=== PATIENT | female | born 1945 | race Caucasian/White ===

== ENCOUNTER 2016-02-22 08:35 | Outpatient (CLI) | payer MEDICARE ==
[2016-02-22] MEDS ORDERED: REGADENOSON 0.4 MG/5 ML SYRINGE IVP ONE (12:57)
== END 2016-02-22 08:36 | disposition home or self-care (01) ==
DX: R07.9 Chest pain, unspecified (principal); R94.31 Abnormal electrocardiogram [ECG] [EKG]; I73.9 Peripheral vascular disease, unspecified; I10 Essential (primary) hypertension; E78.5 Hyperlipidemia, unspecified; Z87.891 Personal history of nicotine dependence
CPT/HCPCS: 78452; 93017; A9500; J2785

== ENCOUNTER 2016-05-13 07:07 | Outpatient (CLI) | payer MEDICARE | END 2016-05-13 07:08 | disposition home or self-care (01) | DX: E78.5 Hyperlipidemia, unspecified (principal); F31.9 Bipolar disorder, unspecified; E03.9 Hypothyroidism, unspecified ==

== ENCOUNTER 2016-07-02 06:42 | Day surgery (SDC) | payer MEDICARE ==
[2016-07-02] MEDS ORDERED: LACTATED RINGERS 1,000 ML IV ONE ×2 (07:31→08:13)
[2016-07-02] MEDS ORDERED: BENZOCAINE/TETRACAINE/BUTAMBEN SPRAY 56 GM TOP ONE (08:12)
[2016-07-02] MEDS ORDERED: fentaNYL 100 MCG/2 ML VIAL IVP ONE (08:25)
[2016-07-02] MEDS ORDERED: MIDAZOLAM 2 MG/2 ML VIAL IVP ONE (08:25)
== END 2016-07-02 06:43 | disposition home or self-care (01) ==
PROC: 0DB68ZX Excision of Stomach, Via Natural or Artificial Opening Endoscopic, Diagnostic (ICD-10-PCS; principal; 2016-07-02 08:00)
DX: K29.50 Unspecified chronic gastritis without bleeding (principal); K21.9 Gastro-esophageal reflux disease without esophagitis; F17.210 Nicotine dependence, cigarettes, uncomplicated; Z88.0 Allergy status to penicillin; K44.9 Diaphragmatic hernia without obstruction or gangrene
CPT/HCPCS: 43239; A9270; J7120

== ENCOUNTER 2016-09-25 10:22 | Outpatient (CLI) | payer MEDICARE ==
--- NOTE | 2016-09-26 16:56 | Mammography Report ---
DIGITAL SCREENING MAMMOGRAM: 09/25/2016 CLINICAL INDICATION: A 71-year-old for screening. COMPARISON: 12/2014, 10/2013, 10/2011. TECHNIQUE: Routine CC and MLO projections were obtained of the breasts. FINDINGS: Parenchymal tissue within the breasts is predominantly fatty replaced. There are no domin ant masses, suspicious microcalcifications, or secondary signs of malignancy. In comparison to the p revious studies, there are no significant changes. IMPRESSION: NO MAMMOGRAPHIC EVIDENCE OF MALIGNANCY. NO SIGNIFICANT INTERVAL CHANGES. RECOMMENDATION: Screening mammography is recommended annually. BIRADS category 1 - negative. STANDARD QUALIFYING STATEMENTS 1. This examination was reviewed with the aid of Computed-Aided Detection (CAD). 2. A negative or benign imaging report should not delay biopsy if clinically suspicious findings are present. Consider surgical consultation if warranted. More than 5% of cancers are not identified b y imaging. 3. Dense breasts may obscure an underlying neoplasm. JOB #: [id number] EXT [id number] #:[id number]
== END 2016-09-25 10:23 | disposition home or self-care (01) ==
LOC: DI 10:22
PROVIDERS: ATTEND Family Medicine
DX: Z12.31 Encounter for screening mammogram for malignant neoplasm of breast (principal)
CPT/HCPCS: 77067

== ENCOUNTER 2016-12-04 13:06 | Outpatient (CLI) | payer MEDICARE ==
[2016-12-04 12:36] LABS: HCT - HEMATOCRIT 44.3 % (37.0-47.0); HGB - HEMOGLOBIN 14.4 g/dL (12.0-16.0); MEAN CORPUSCULAR HEMOGLOBIN 28.3 pg (27.0-31.0); MEAN CORPUSCULAR HGB CONC 32.6 g/dL (32.0-36.0); MEAN CORPUSCULAR VOLUME 86.9 fL (81.0-99.0); RED BLOOD COUNT 5.1 10^6/uL (4.20-5.40); RED CELL DISTRIBUTION WIDTH 14.8 % (12.0-15.0); WHITE BLOOD COUNT 9.1 x10^3/uL (4.8-10.8)
[2016-12-04 13:11] LABS: CALCIUM 9.1 mg/dL (8.5-10.3); PHOSPHORUS 4.5 mg/dL (2.5-4.6)
[2016-12-04 13:14] LABS: FERRITIN 79.7 ng/mL (11.0-306.8)
== END 2016-12-04 13:07 | disposition home or self-care (01) ==
LOC: LAB.WCP 13:06
PROVIDERS: ATTEND Family Medicine
DX: F31.9 Bipolar disorder, unspecified (principal); N18.4 Chronic kidney disease, stage 4 (severe)
CPT/HCPCS: 36415; 80048; 80178; 82728; 83970; 84100; 85025

== ENCOUNTER 2017-01-11 14:37 | Outpatient (CLI) | payer MEDICARE ==
--- NOTE | 2017-01-11 16:13 | Ultrasound Report ---
EXAM: RENAL ULTRASOUND EXAM DATE: 01/11/2017 02:38 p.m. CLINICAL HISTORY: Stage 4 kidney disease. COMPARISON: 09/15/2014 CT. TECHNIQUE: Real-time scanning was performed with static images obtained. FINDINGS: Right Kidney: 10.8 x 4.6 x 4.6 cm. Echogenic renal cortex. No renal mass, stones or hydronephrosis. 1 .4 x 1.2 x 1.5 cm simple right upper pole renal cyst. Left Kidney: 10 x 3.6 x 4.4 cm. Echogenic renal cortex. No renal mass, stones or hydronephrosis. Bladder: Bilateral jets seen. The prevoid bladder volume was 72 cc. The postvoid bladder volume was 0 cc. IMPRESSION: 1. Echogenic renal cortex. No stones or hydronephrosis. 1.5 cm simple right upper pole renal cyst. 2. Normal bladder. [facility] Referring Provider Line: [phone] SITE ID: [id number]
== END 2017-01-11 14:38 | disposition home or self-care (01) ==
LOC: DI 14:37
PROVIDERS: ATTEND Internal Medicine Nephrology
DX: N18.4 Chronic kidney disease, stage 4 (severe) (principal); N28.1 Cyst of kidney, acquired
CPT/HCPCS: 76770

== ENCOUNTER 2017-07-07 20:49 | Emergency (ER) | payer MEDICARE ==
[2017-07-07 22:00] LABS: BASOPHILS % (AUTO) 0.3 %; EOSINOPHILS # (AUTO) 0.3 10^3/uL (0.0-0.7); EOSINOPHILS % (AUTO) 2.4 %; HGB - HEMOGLOBIN 13.4 g/dL (12.0-16.0); LYMPHOCYTES # (AUTO) 1.2 10^3/uL (1.5-3.5); LYMPHOCYTES % (AUTO) 11.5 %; MEAN CORPUSCULAR HEMOGLOBIN 28.1 pg (27.0-31.0); MEAN CORPUSCULAR HGB CONC 32.3 g/dL (32.0-36.0); MEAN CORPUSCULAR VOLUME 87.1 fL (81.0-99.0); MEAN PLATELET VOLUME 8.1 fL (7.9-10.8); MONOCYTES # (AUTO) 0.6 10^3/uL (0.0-1.0); MONOCYTES % (AUTO) 5.9 %; NEUTROPHILS # (AUTO) 8.5 10^3/uL (1.5-6.6); NEUTROPHILS % (AUTO) 79.9 %; PLT - PLATELET COUNT 222 10^3/uL (130-450); RED BLOOD COUNT 4.76 10^6/uL (4.20-5.40); RED CELL DISTRIBUTION WIDTH 15.1 % (12.0-15.0); WHITE BLOOD COUNT 10.6 x10^3/uL (4.8-10.8)
[2017-07-07 22:12] LABS: ALBUMIN 3.5 g/dL (3.2-5.5); BILIRUBIN,TOTAL 0.5 mg/dL (0.2-1.0); CALCIUM 8.9 mg/dL (8.5-10.3)
--- NOTE | 2017-07-07 22:26 | ED Physician Documentation ---
PD HPI ABD PAIN - Stated complaint Stated Complaint: REFLUX ISSUES - Chief complaint Chief Complaint: Abd Pain - History obtained from History obtained from: Patient - History of Present Illness Timing - onset: Today Timing - duration: Hours Timing - details: Still present Quality: Indigestion (feeling like reflux/heart burn she has had in the past but no improvement with Carafate and Omprazole. has had similar in the past and improved with GI cocktail previously. Has had cardiac workup which is normal. Had EGD few months ago Dx gastritis and was hpylori negative. On PPI and Carafate. However her creatinine is elevated so is concerned about PPI use and ? not as consistent with it.) Location: Epigastric Radiation: Chest Improved by: No: Eating, Meds Worsened by: Eating Associated symptoms: No: Nausea, Vomiting, Diarrhea Similar symptoms before: Diagnosis (GERD and reflux/esophagitis) Review of Systems Constitutional: denies: Fever, Chills Nose: denies: Rhinorrhea / runny nose, Congestion Throat: denies: Sore throat Cardiac: denies: Palpitations, Pedal edema, Calf pain Respiratory: denies: Cough GI: reports: Abdominal Pain. 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 HEENT: Cataracts Derm: Other - Present Medications Home Medications: Ambulatory Orders Medication Instructions Recorded Confirmed Ipratropium/Albuterol [Combivent 4 gm IH DAILY 01/22/13 07/07/17 Respimat] Levothyroxine Sodium [Synthroid] 112 mcg PO DAILY 01/22/13 07/07/17 [place] Carbonate [[place] 450 mg PO HS 01/22/13 07/07/17 Carbonate ER] Multivitamin [Multivitamins] 1 each PO DAILY 01/22/13 07/07/17 NIFEdipine [Procardia Xl] 90 mg PO DAILY 01/22/13 07/07/17 Omeprazole 20 mg PO BID 01/22/13 07/07/17 Aspirin [Aspir 81] 81 mg PO DAILY 09/12/14 07/07/17 Nitroglycerin [Nitrostat] 0.4 mg SL Q5MIN PRN 09/12/14 07/07/17 Isosorbide Dinitrate 30 mg PO BID 07/01/16 07/07/17 Triamterene/Hydrochlorothiazid 1 each PO DAILY 07/01/16 07/07/17 [Triamterene-Hctz 37.5-25 mg Cp] Lidocaine Viscous 2% [Xylocaine 5 ml PO Q4H PRN #1 bottle 07/07/17 Viscous 2%] Sucralfate 1 gm PO TID #30 tablet 07/07/17 - Allergies Allergies/Adverse Reactions: Allergies Allergy/AdvReac Type Severity Reaction Status Date / Time diphenhydramine HCl * AdvReac Severe Anaphylaxis Verified 07/07/17 21:06 [From Benadryl] penicillin V AdvReac Severe Anaphylaxis Verified 07/07/17 21:06 atorvastatin calcium * AdvReac Anaphylaxis Verified 07/07/17 21:06 [From Lipitor] - Social History Does the pt smoke?: Yes Smoking Status: Current every day smoker Does the pt drink ETOH?: Yes Does the pt have substance abuse?: No - Immunizations Immunizations are current?: No Immunizations: TDAP >10years/unknown - POLST Patient has POLST: No PD ED PE NORMAL - Vitals Vital signs reviewed: Yes - General General: Alert and oriented X 3, Well developed/nourished - HEENT HEENT: Pharynx benign - Neck Neck: Supple, no meningeal sign, No adenopathy - Cardiac Cardiac: RRR, No murmur - Respiratory Respiratory: Clear bilaterally - Abdomen Abdomen: Normal bowel sounds, Soft, Non tender, Non distended - Derm Derm: Normal color, Warm and dry Results - Vitals Vitals: Vital Signs - 24 hr 07/07/17 07/07/17 21:00 22:56 Temperature 36.3 C L Heart Rate 62 63 Respiratory 17 21 Rate Blood Pressure 150/82 H 131/65 H O2 Saturation 98 97 Oxygen O2 Source Room air - EKG (time done) 21:49 Rate: Rate (enter#) (57) Rhythm: Sinus bradycardia Hart: Normal Intervals: Normal PA QRS: Poor R wave progression Ischemia: Normal ST segments. No: ST elevation c/w ischemia, ST depression Computer interpretation: Disagree with computer - Labs Labs: Laboratory Tests 07/07/17 07/07/17 07/07/17 21:54 21:54 21:54 WBC 10.6 RBC 4.76 Hgb 13.4 Hct 41.5 MCV 87.1 MCH 28.1 MCHC 32.3 RDW 15.1 H Plt Count 222 MPV 8.1 Neut # 8.5 H Lymph # 1.2 L [place] # 0.6 Eos # 0.3 Baso # 0.0 Absolute Nucleated RBC 0.00 Nucleated RBC % 0.0 Sodium 136 Potassium 3.3 L Chloride 106 Carbon Dioxide 21 Anion Gap 9.0 BUN 21 H Creatinine 2.0 H Estimated GFR (MDRD) 24 L Glucose 133 H Calcium 8.9 Magnesium Total Bilirubin 0.5 AST 13 ALT 12 Alkaline Phosphatase 100 Troponin I < 0.04 B-Natriuretic Peptide Total Protein 7.0 Albumin 3.5 Globulin 3.5 Albumin/Globulin Ratio 1.0 Lipase 28 Last Dose Date Last Dose Time [place] 07/07/17 07/07/17 07/07/17 21:54 22:34 22:34 WBC RBC Hgb Hct MCV MCH MCHC RDW Plt Count MPV Neut # Lymph # [place] # Eos # Baso # Absolute Nucleated RBC Nucleated RBC % Sodium Potassium Chloride Carbon Dioxide Anion Gap BUN Creatinine Estimated GFR (MDRD) Glucose Calcium Magnesium 2.4 Total Bilirubin AST ALT Alkaline Phosphatase Troponin I B-Natriuretic Peptide 252 H Total Protein Albumin Globulin Albumin/Globulin Ratio Lipase Last Dose Date Not Reportable Last Dose Time Not Reportable [place] 0.35 PD MEDICAL DECISION MAKING - ED course Complexity details: re-evaluated patient (improved with GI cocktail. Has had workup of cardiac and EGD, prior EGD test for h pylori was negative. has had improvement with GI cocktail when bad flare such as tonight has happened in the past. ), considered differential, d/w patient Departure - Departure Disposition: Home, Self Care Clinical Impression: Epigastric abdominal pain Gastritis Qualifiers: Gastritis type: unspecified gastritis Chronicity: acute Gastritis bleeding: without bleeding Qualified Code(s): K29.00 - Acute gastritis without bleeding Condition: Stable Record reviewed to determine appropriate education?: Yes Instructions: ED PUD Vs Gastritis Follow-Up: Apollo Rhodes DO [Primary Care Provider] - Prescriptions: Lidocaine Viscous 2% [Xylocaine Viscous 2%] 5 ml PO Q4H PRN #1 bottle PRN Reason: Pain Sucralfate 1 gm PO TID #30 tablet Comments: Continue your current medications. Continue the sucralfate 3 or 4 times a day. Add viscous lidocaine 5-10 mils mixed with an antacid every 4 hours if needed for pains. Follow-up with your primary care. Discharge Date/Time: 07/07/17 23:21
--- NOTE | 2017-07-07 22:33 | XRAY Report ---
EXAM: CHEST RADIOGRAPHY EXAM DATE: 07/07/2017 10:08 PM. CLINICAL HISTORY: Chest pain. COMPARISON: 01/29/2011. TECHNIQUE: 1 view. FINDINGS: Lungs/Pleura: No focal opacities evident. No pleural effusion. No pneumothorax. Mediastinum: Within exam limitations, the cardiomediastinal contour is normal. Other: None. IMPRESSION: Stable negative single view chest. [facility] Referring Provider Line: [phone] SITE ID: [id number]
[2017-07-07] MEDS ORDERED: MAG HYDROX/AL HYDROX/SIMETH 30 ML UDC PO STA (22:47)
[2017-07-07] MEDS ORDERED: PHENobarb/HYOSCY/ATROPINE/SCOP 5 ML UDC PO STA (22:47)
[2017-07-07] MEDS ORDERED: LIDOCAINE VISCOUS 2% 15 ML UDC MM STA (22:47)
[2017-07-07 22:56] VITALS: BP 131/65
[2017-07-07 23:31] LABS: LITHIUM 0.35 mmol/L
== END 2017-07-07 23:21 | disposition home or self-care (01) ==
LOC: ED 20:49
DX: K29.00 Acute gastritis without bleeding (principal); K21.9 Gastro-esophageal reflux disease without esophagitis; R00.1 Bradycardia, unspecified; I10 Essential (primary) hypertension; E03.9 Hypothyroidism, unspecified; F17.200 Nicotine dependence, unspecified, uncomplicated; Z79.82 Long term (current) use of aspirin
CPT/HCPCS: 36415; 71045; 80053; 80178; 83690; 83735; 83880; 84484; 85025; 93005; 99283; A9270

== ENCOUNTER 2017-11-25 09:11 | Outpatient (CLI) | payer MEDICARE ==
--- NOTE | 2017-11-25 16:17 | Ultrasound Report ---
Reason: ABNORMAL WEIGHT LOSS,EPIGASTRIC PAIN Procedure Date: 11/25/2017 Accession Number: [id number] / [id number] Procedure: US - Arterial Visceral Complete CPT Code: FULL RESULT: EXAM: MESENTERIC DUPLEX EXAM DATE: 11/25/2017 10:11 AM. CLINICAL HISTORY: Abnormal weight loss, epigastric pain. COMPARISON: 11/25/2017 10:18 AM. TECHNIQUE: Real-time sonographic vascular imaging was performed by the corrugator operator through the mesenteric arterial system with a linear transducer utilizing color-flow, Doppler flow and spectral analysis. Multiple lead customer service representative static images were saved for review. FINDINGS: The celiac axis, VONNIE and SMA axes are interrogated proximally and compared to the aorta. All vessels demonstrate brisk upstrokes by spectral Doppler, preserved flow by color Doppler and are within normal limits on hall scale. Obtained velocities are not consistent with greater than 70% stenosis in the sampled vascular territories. Aorta: 96cm/sec. Celiac [place]: Origin: 103.2 cm/sec. Proximal: 98.3 cm/sec. Mid: 160.7 cm/sec. Distal: 143.4 cm/sec. Hepatic Artery: 101.0 cm/sec. Splenic Artery: 82.7 cm/sec. Superior Mesenteric Artery Origin: 109.2 cm/sec. Proximal: 223.9 cm/sec. Mid: 219.4 cm/sec. Distal: 119.0 cm/sec. Inferior Mesenteric Artery: Origin: 128.9 cm/sec. Proximal: 218.3 cm/sec. Mid: 162.7 cm/sec. Distal: 94.3 cm/sec. IMPRESSION: Patent proximal celiac and SMA and VONNIE axes. No velocities are suggestive of greater than 70% stenosis. [facility]
== END 2017-11-25 09:12 | disposition home or self-care (01) ==
LOC: DI 09:11
PROVIDERS: ATTEND Internal Medicine
DX: R63.4 Abnormal weight loss (principal); R10.13 Epigastric pain; K21.9 Gastro-esophageal reflux disease without esophagitis
CPT/HCPCS: 93975

== ENCOUNTER 2018-01-27 10:21 | Outpatient (CLI) | payer MEDICARE ==
--- NOTE | 2018-01-28 09:04 | DEXA Report ---
Reason: POSTMENOPAUSAL STATUS Procedure Date: 01/27/2018 Accession Number: [id number] / [id number] Procedure: DEX - Dexa Spine and/or Hip CPT Code: FULL RESULT: EXAM: Dexa Spine and/or Hip DATE: 01/27/2018 11:08 AM CLINICAL HISTORY: POSTMENOPAUSAL STATUS TECHNIQUE: Dual energy x-ray absorptiometry (DXA) was performed on a [employer]IEvolution System. Regions measured are the AP Spine, femoral neck, and if needed forearm. COMPARISON: None. In accordance with the International Society for Clinical Densitometry (ISCD) guidelines, data from previous exams may be reanalyzed using current recommendations and techniques. This is done to allow a more accurate basis for comparison with the current study. FINDINGS: The data for the lumbar spine is as follows: BMD (g/cm/cm) T-SCORE Z-SCORE REGION L1 1.001 -1.1 0.3 L2 1.080 -1.0 0.4 L3 1.184 -0.1 1.2 L4 1.313 0.9 2.3 TOTAL 1.141 -0.3 1.0 NOTE: All evaluable vertebrae are used for classification The data for the hip is as follows: BMD (g/cm/cm) T-SCORE Z-SCORE REGION Neck 0.730 -2.2 -0.6 TOTAL 0.730 -2.2 -0.8 NOTE: The femoral neck or total proximal femur, whichever is lowest, is used for classification. IMPRESSION: THE WHO CLASSIFICATION BASED ON THE INTERNATIONAL REFERENCE STANDARD IS OSTEOPENIA. THE FRACTURE RISK IS INCREASED. RECOMMENDATION: Patients with diagnosis of osteoporosis or osteopenia should have regular bone mineral density assessment. For those eligible for Medicare, routine testing is allowed once every 2 years. Testing frequency can be increased for patients who have rapidly progressing disease or for those who are receiving medical therapy to restore bone mass. COMMENT: World Health Organization (WHO) definitions for osteoporosis and osteopenia: NORMAL BMD: T-score at -1.0 or higher, fracture risk is low OSTEOPENIA BMD: T-score between -1.0 and -2.5, fracture risk is increased. OSTEOPOROSIS BMD: T-score at -2.5 or lower, fracture risk is high. National Osteoporosis Foundation recommends: 1. Obtain adequate dietary calcium (at least 1200 mg per day) and vitamin D (400-800 international units per day). 2. Participate, as appropriate, in regular weightbearing and muscle-strengthening exercise. 3. Avoid tobacco use and reduce alcohol and caffeine intake. 4. For more detailed information see the website at www.NOF.org.
== END 2018-01-27 10:22 | disposition home or self-care (01) ==
LOC: DI 10:21
PROVIDERS: ATTEND Family Medicine
DX: M85.88 Other specified disorders of bone density and structure, other site (principal)
CPT/HCPCS: 77080

== ENCOUNTER 2018-10-18 08:57 | Emergency (ER) | payer MEDICARE ==
--- NOTE | 2018-10-18 09:09 | ED Physician Documentation ---
PD HPI ABD PAIN - Stated complaint Stated Complaint: UPPER ABD PX - History obtained from History obtained from: Patient - History of Present Illness Timing - onset: How many days ago (3-4) Timing - duration: Days (several days of increased pain epigastric area. Has had reflux and heartburn for awhile, but was better with increased doses of Omeprazole 40 mg BID. This is not as effective the past few weeks and having consistent upper mani pain the past 3-4 days.) Timing - details: Gradual onset, Still present, Waxing and waning Quality: Cramping, Aching, Pain Location: Epigastric Radiation: Chest (esophageal area.) Improved by: Other (lidocaine PO with Gaviscon, but only temporarily.) Worsened by: Eating Associated symptoms: Nausea, Loss of appetite. No: Fever, Vomiting, Diarrhea, Constipation, Dizzy Similar symptoms before: Has not had sx before Recently seen: Not recently seen Review of Systems Constitutional: denies: Fever, Chills, Myalgias Nose: denies: Rhinorrhea / runny nose, Congestion Throat: denies: Sore throat Cardiac: denies: Palpitations Respiratory: denies: Cough GI: reports: Nausea. 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 HEENT: Cataracts Derm: Other - Present Medications Home Medications: Ambulatory Orders Medication Instructions Recorded Confirmed Ipratropium/Albuterol [Combivent 4 gm IH DAILY 01/22/13 07/07/17 Respimat] Levothyroxine Sodium [Synthroid] 112 mcg PO DAILY 01/22/13 07/07/17 [place] Carbonate [[place] 450 mg PO HS 01/22/13 07/07/17 Carbonate ER] Multivitamin [Multivitamins] 1 each PO DAILY 01/22/13 07/07/17 NIFEdipine [Procardia Xl] 90 mg PO DAILY 01/22/13 07/07/17 Omeprazole 20 mg PO BID 01/22/13 07/07/17 Aspirin [Aspir 81] 81 mg PO DAILY 09/12/14 07/07/17 Nitroglycerin [Nitrostat] 0.4 mg SL Q5MIN PRN 09/12/14 07/07/17 Isosorbide Dinitrate 30 mg PO BID 07/01/16 07/07/17 Triamterene/Hydrochlorothiazid 1 each PO DAILY 07/01/16 07/07/17 [Triamterene-Hctz 37.5-25 mg Cp] Lidocaine Viscous 2% [Xylocaine 5 ml PO Q4H PRN #1 bottle 07/07/17 Viscous 2%] Sucralfate 1 gm PO TID #30 tablet 07/07/17 Hydrocodone/Acetaminophen [[place] 1 each PO Q6H PRN #15 tablet 10/18/18 5-325 Tablet] Lidocaine Viscous 2% [Xylocaine 5 ml PO Q4H PRN #100 ml 10/18/18 Viscous 2%] Pantoprazole Sodium 40 mg PO DAILY #40 tablet. 10/18/18 Sucralfate [Carafate] 1 gm PO ACHS #40 tablet 10/18/18 - Allergies Allergies/Adverse Reactions: Allergies Allergy/AdvReac Type Severity Reaction Status Date / Time diphenhydramine HCl * AdvReac Severe Anaphylaxis Verified 10/18/18 09:13 [From Benadryl] penicillin V AdvReac Severe Anaphylaxis Verified 10/18/18 09:13 atorvastatin calcium * AdvReac Anaphylaxis Verified 10/18/18 09:13 [From Lipitor] - Social History Does the pt smoke?: Yes Smoking Status: Current every day smoker Does the pt drink ETOH?: Yes Does the pt have substance abuse?: No - Immunizations Immunizations are current?: No Immunizations: TDAP >10years/unknown - POLST Patient has POLST: No PD ED PE NORMAL - Vitals Vital signs reviewed: Yes - General General: Alert and oriented X 3, Well developed/nourished - HEENT HEENT: Ears normal, Moist mucous membranes, Pharynx benign - Neck Neck: Supple, no meningeal sign, No adenopathy - Cardiac Cardiac: RRR, No murmur - Respiratory Respiratory: Clear bilaterally - Abdomen Abdomen: Normal bowel sounds, Soft, Non distended, No organomegaly, Other (tender with some guarding but no percussion tender, in the epigastric area. ) - Extremities Extremities: No deformity, No tenderness to palpate, Normal ROM s pain, No edema, No calf tenderness / cord - Neuro Neuro: Alert and oriented X 3, No motor deficit, Normal speech Results - Vitals Vitals: Vital Signs - 24 hr 10/18/18 10/18/18 10/18/18 09:10 09:45 12:29 Temperature 98.3 C H 36.8 C 36.8 C Heart Rate 60 60 Respiratory 19 17 Rate Blood Pressure 146/76 H 111/64 O2 Saturation 99 97 Oxygen O2 Source Room air - Labs Labs: Laboratory Tests 10/18/18 10/18/18 10/18/18 09:42 09:42 09:42 WBC 9.1 RBC 4.57 Hgb 13.2 Hct 43.0 MCV 94.1 MCH 28.9 MCHC 30.7 L RDW 13.8 Plt Count 222 MPV 10.1 Neut # (Auto) 7.5 H Lymph # (Auto) 0.9 L [place] # (Auto) 0.5 Eos # (Auto) 0.2 Baso # (Auto) 0.0 Absolute Nucleated RBC 0.00 Nucleated RBC % 0.0 Sodium 139 Potassium 4.3 Chloride 108 Carbon Dioxide 23 Anion Gap 8.0 BUN 29 H Creatinine 2.5 H Estimated GFR (MDRD) 19 L Glucose 124 H Calcium 8.9 Magnesium 2.8 Total Bilirubin 0.6 AST 13 ALT 13 Alkaline Phosphatase 95 Troponin I High Sens 19.4 H* Total Protein 7.2 Albumin 3.5 Globulin 3.7 Albumin/Globulin Ratio 0.9 L Lipase 43 Last Dose Date Last Dose Time [place] 10/18/18 10:40 WBC RBC Hgb Hct MCV MCH MCHC RDW Plt Count MPV Neut # (Auto) Lymph # (Auto) [place] # (Auto) Eos # (Auto) Baso # (Auto) Absolute Nucleated RBC Nucleated RBC % Sodium Potassium Chloride Carbon Dioxide Anion Gap BUN Creatinine Estimated GFR (MDRD) Glucose Calcium Magnesium Total Bilirubin AST ALT Alkaline Phosphatase Troponin I High Sens Total Protein Albumin Globulin Albumin/Globulin Ratio Lipase Last Dose Date Unknown Last Dose Time Unknown [place] 0.60 PD MEDICAL DECISION MAKING - ED course Complexity details: reviewed results, re-evaluated patient (feeling much better with GI cocktail and carafate.), considered differential (seems likely gastritis. Labs will be checked. ), d/w patient Departure - Departure Disposition: 01 Home, Self Care Clinical Impression: Upper abdominal pain Gastritis, acute Qualifiers: Gastritis type: unspecified gastritis Gastritis bleeding: without bleeding Qualified Code(s): K29.00 - Acute gastritis without bleeding Condition: Stable Record reviewed to determine appropriate education?: Yes Instructions: ED PUD Vs Gastritis Follow-Up: Apollo Rhodes DO [Primary Care Provider] - Polly Baca MD [Provider Admit Priv/Credential] - Prescriptions: Hydrocodone/Acetaminophen [[place] 5-325 Tablet] 1 each PO Q6H PRN #15 tablet PRN Reason: Pain Lidocaine Viscous 2% [Xylocaine Viscous 2%] 5 ml PO Q4H PRN #100 ml PRN Reason: Pain Pantoprazole Sodium 40 mg PO DAILY #40 tablet. Sucralfate [Carafate] 1 gm PO ACHS #40 tablet Comments: Change from your omeprazole to pantoprazole and see if it works more effectively. Use it twice a day for the first 10 days and then to once a day. Additionally use suckle fate 3 or 4 times a day to help coat the stomach as well. Add the lidocaine with Gaviscon if needed for discomfort periodically. If still hurting you can add hydrocodone pain medicine periodically. Bring a stool sample to your primary care to have them test for H. pylori to ensure not a an infectious cause of your persistent ulcer type symptoms. Could also consider having them refer you again or yourself follow-up with the resident athletic trainer again for further recommendations.This would be Dr. Baca's office though it can be 1 of the other GI specialist to come to would be. Discharge Date/Time: 10/18/18 12:29
[2018-10-18] MEDS ORDERED: GI COCKTAIL 120 ML BOTTLE PO STA (09:29)
[2018-10-18] MEDS ORDERED: SUCRALFATE 1 GM/10 ML UDC PO STA (09:29)
[2018-10-18 09:47] LABS: BASOPHILS % (AUTO) 0.3 %; EOSINOPHILS # (AUTO) 0.2 10^3/uL (0.0-0.7); EOSINOPHILS % (AUTO) 1.8 %; HGB - HEMOGLOBIN 13.2 g/dL (12.0-16.0); LYMPHOCYTES # (AUTO) 0.9 10^3/uL (1.5-3.5); LYMPHOCYTES % (AUTO) 10.1 %; MEAN CORPUSCULAR HEMOGLOBIN 28.9 pg (27.0-31.0); MEAN CORPUSCULAR HGB CONC 30.7 g/dL (32.0-36.0); MEAN CORPUSCULAR VOLUME 94.1 fL (81.0-99.0); MEAN PLATELET VOLUME 10.1 fL (7.9-10.8); MONOCYTES # (AUTO) 0.5 10^3/uL (0.0-1.0); MONOCYTES % (AUTO) 5.3 %; NEUTROPHILS # (AUTO) 7.5 10^3/uL (1.5-6.6); NEUTROPHILS % (AUTO) 82.3 %; PLT - PLATELET COUNT 222 10^3/uL (130-450); RED BLOOD COUNT 4.57 10^6/uL (4.20-5.40); RED CELL DISTRIBUTION WIDTH 13.8 % (12.0-15.0); WHITE BLOOD COUNT 9.1 x10^3/uL (4.8-10.8)
[2018-10-18] MEDS ORDERED: LIDOCAINE VISCOUS 2% 15 ML UDC MM STA (09:55)
[2018-10-18] MEDS ORDERED: PHENobarb/HYOSCY/ATROPINE/SCOP 5 ML SYRINGE PO STA (09:55)
[2018-10-18] MEDS ORDERED: MAG HYDROX/AL HYDROX/SIMETH 30 ML UDC PO STA (09:55)
[2018-10-18 10:01] LABS: ALBUMIN 3.5 g/dL (3.2-5.5); ALBUMIN/GLOBULIN RATIO 0.9 (1.0-2.2); BILIRUBIN,TOTAL 0.6 mg/dL (0.2-1.0); CALCIUM 8.9 mg/dL (8.5-10.3); CREATININE 2.5 mg/dL (0.4-1.0); MAGNESIUM 2.8 mg/dL (1.7-2.8); TOTAL PROTEIN 7.2 g/dL (6.7-8.2)
[2018-10-18 12:29] VITALS: BP 111/64
== END 2018-10-18 12:29 | disposition home or self-care (01) ==
LOC: ED 08:57
DX: K29.70 Gastritis, unspecified, without bleeding (principal); I10 Essential (primary) hypertension; F17.200 Nicotine dependence, unspecified, uncomplicated
CPT/HCPCS: 36415; 80053; 80178; 83690; 83735; 84484; 85025; 93005; 99284; A9270

== ENCOUNTER 2018-10-21 05:00 | Outpatient (CLI) | payer MEDICARE ==
[2018-10-21 20:23] LABS: H. PYLORIS ANTIGEN STL NEGATIVE (Negative)
== END 2018-10-21 23:59 | disposition home or self-care (01) ==
LOC: LAB.WCP 05:00
PROVIDERS: ATTEND Family Medicine
DX: K21.9 Gastro-esophageal reflux disease without esophagitis (principal)
CPT/HCPCS: 87338

== ENCOUNTER 2018-10-29 08:00 | Outpatient (CLI) | payer MEDICARE | END 2018-10-29 23:59 | disposition home or self-care (01) | LOC: LAB.WCP 08:00 | PROVIDERS: ATTEND Family Medicine | DX: R79.89 Other specified abnormal findings of blood chemistry (principal) | CPT/HCPCS: 36415; 84484 ==

== ENCOUNTER 2019-05-26 12:08 | Outpatient (CLI) | payer MEDICARE ==
[2019-05-26 12:37] LABS: BASOPHILS % (AUTO) 0.2 %; EOSINOPHILS # (AUTO) 0.1 10^3/uL (0.0-0.7); LYMPHOCYTES # (AUTO) 1.3 10^3/uL (1.5-3.5); LYMPHOCYTES % (AUTO) 10.6 %; MEAN CORPUSCULAR HEMOGLOBIN 29.6 pg (27.0-31.0); MEAN CORPUSCULAR HGB CONC 31.2 g/dL (32.0-36.0); MONOCYTES # (AUTO) 0.7 10^3/uL (0.0-1.0); MONOCYTES % (AUTO) 5.3 %; NEUTROPHILS # (AUTO) 10.4 10^3/uL (1.5-6.6); NEUTROPHILS % (AUTO) 82.4 %; PLT - PLATELET COUNT 271 10^3/uL (130-450); RED BLOOD COUNT 4.39 10^6/uL (4.20-5.40); WHITE BLOOD COUNT 12.6 x10^3/uL (4.8-10.8)
[2019-05-26 12:50] LABS: ALBUMIN/GLOBULIN RATIO 1.1 (1.0-2.2); BILIRUBIN,TOTAL 0.5 mg/dL (0.2-1.0); CALCIUM 8.5 mg/dL (8.5-10.3); CREATININE 3.6 mg/dL (0.4-1.0); TOTAL PROTEIN 7.6 g/dL (6.7-8.2)
--- NOTE | 2019-05-26 13:14 | CT Report ---
Reason: ALTERED MENTAL STATUS Procedure Date: 05/26/2019 Accession Number: [id number] / [id number] Procedure: CT - HEAD WO CPT Code: Final Report FULL RESULT: EXAM: CT HEAD EXAM DATE: 05/26/2019 12:45 PM. CLINICAL HISTORY: ALTERED MENTAL STATUS. COMPARISON: [facility] 11/05/2013 1:35 PM. TECHNIQUE: Multiaxial CT images were obtained from the foramen magnum to the vertex. Reformats: Sagittal and coronal. IV contrast: None. In accordance with CT protocol optimization, one or more of the following dose reduction techniques were utilized for this exam: automated exposure control, adjustment of mA and/or KV based on patient size, or use of iterative reconstructive technique. FINDINGS: Parenchyma: There is mild patchy hypodensity in the bilateral cerebral white matter consistent with chronic small vessel ischemic change. There are no high density lesions. There is no mass-effect. Davis-white differentiation is intact. Extraaxial Spaces: Normal for age. No subdural or epidural collections identified. Ventricles: Normal in size and position. Sinuses and Orbits: Imaged paranasal sinuses, orbits, and mastoids show no significant abnormality. Bones: No evidence of fracture or calvarial defect. Other: None. IMPRESSION: 1. Mild patchy chronic small vessel ischemic change in the bilateral cerebral white matter. 2. No intracranial hemorrhage, mass-effect, or current CT evidence of acute CVA. [facility]
[2019-05-26 13:39] LABS: LITHIUM 2.25 mmol/L
--- NOTE | 2019-05-26 15:46 | XRAY Report ---
Reason: ALTERED MENTAL STATUS Procedure Date: 05/26/2019 Accession Number: [id number] / [id number] Procedure: XR - Chest 2 View X-Ray CPT Code: 53769 Final Report FULL RESULT: EXAM: CHEST RADIOGRAPHY EXAM DATE: 05/26/2019 12:54 PM. CLINICAL HISTORY: Altered mental status. COMPARISON: CHEST 1 VIEW 07/07/2017 9:54 PM. TECHNIQUE: 2 views. FINDINGS: Lungs/Pleura: Shallow lung volumes with bibasilar atelectasis. No consolidations or pleural fluid collections. Mediastinum: Heart and mediastinal contours are unremarkable. Other: Surgical clips in right upper quadrant of the abdomen. IMPRESSION: Mild bibasilar atelectasis. No consolidations identified. [facility]
== END 2019-05-26 12:09 | disposition home or self-care (01) ==
LOC: DI 12:08
PROVIDERS: ATTEND Family Medicine
DX: J98.11 Atelectasis (principal); I67.2 Cerebral atherosclerosis; R41.82 Altered mental status, unspecified; N18.4 Chronic kidney disease, stage 4 (severe)
CPT/HCPCS: 36415; 70450; 71046; 80053; 80178; 81001; 81003; 85025; 87086

== ENCOUNTER 2019-06-01 08:00 | Outpatient (CLI) | payer MEDICARE ==
[2019-06-01 12:29] LABS: BASOPHILS % (AUTO) 0.3 %; EOSINOPHILS # (AUTO) 0.2 10^3/uL (0.0-0.7); EOSINOPHILS % (AUTO) 1.7 %; HGB - HEMOGLOBIN 12.8 g/dL (12.0-16.0); LYMPHOCYTES % (AUTO) 11.8 %; MEAN CORPUSCULAR HEMOGLOBIN 29.1 pg (27.0-31.0); MEAN CORPUSCULAR HGB CONC 30.8 g/dL (32.0-36.0); MEAN CORPUSCULAR VOLUME 94.5 fL (81.0-99.0); MEAN PLATELET VOLUME 11.4 fL (7.9-10.8); MONOCYTES # (AUTO) 0.6 10^3/uL (0.0-1.0); MONOCYTES % (AUTO) 6.4 %; NEUTROPHILS # (AUTO) 6.9 10^3/uL (1.5-6.6); NEUTROPHILS % (AUTO) 79.2 %; PLT - PLATELET COUNT 262 10^3/uL (130-450); RED CELL DISTRIBUTION WIDTH 14.3 % (12.0-15.0); WHITE BLOOD COUNT 8.7 x10^3/uL (4.8-10.8)
[2019-06-01 12:58] LABS: ALBUMIN 3.8 g/dL (3.2-5.5); ALBUMIN/GLOBULIN RATIO 1.1 (1.0-2.2); BILIRUBIN,TOTAL 0.7 mg/dL (0.2-1.0); CALCIUM 8.5 mg/dL (8.5-10.3); CREATININE 3.3 mg/dL (0.4-1.0); TOTAL PROTEIN 7.3 g/dL (6.7-8.2)
[2019-06-01 13:17] LABS: LITHIUM 1.44 mmol/L
== END 2019-06-01 23:59 | disposition home or self-care (01) ==
LOC: LAB.WCP 08:00
PROVIDERS: ATTEND Family Medicine
DX: R41.82 Altered mental status, unspecified (principal); Z79.899 Other long term (current) drug therapy
CPT/HCPCS: 36415; 80053; 80178; 85025

== ENCOUNTER 2019-06-08 08:20 | Outpatient (CLI) | payer MEDICARE ==
[2019-06-08 12:17] LABS: BASOPHILS % (AUTO) 0.4 %; EOSINOPHILS # (AUTO) 0.2 10^3/uL (0.0-0.7); EOSINOPHILS % (AUTO) 2.4 %; HGB - HEMOGLOBIN 12.4 g/dL (12.0-16.0); LYMPHOCYTES % (AUTO) 13.9 %; MEAN CORPUSCULAR HEMOGLOBIN 29.9 pg (27.0-31.0); MEAN CORPUSCULAR HGB CONC 30.1 g/dL (32.0-36.0); MEAN CORPUSCULAR VOLUME 99.3 fL (81.0-99.0); MEAN PLATELET VOLUME 10.7 fL (7.9-10.8); MONOCYTES # (AUTO) 0.5 10^3/uL (0.0-1.0); MONOCYTES % (AUTO) 6.4 %; NEUTROPHILS # (AUTO) 5.5 10^3/uL (1.5-6.6); NEUTROPHILS % (AUTO) 76.3 %; PLT - PLATELET COUNT 274 10^3/uL (130-450); RED BLOOD COUNT 4.15 10^6/uL (4.20-5.40); RED CELL DISTRIBUTION WIDTH 15.6 % (12.0-15.0); WHITE BLOOD COUNT 7.2 x10^3/uL (4.8-10.8)
[2019-06-08 12:27] LABS: ALBUMIN 3.7 g/dL (3.2-5.5); ALBUMIN/GLOBULIN RATIO 1.1 (1.0-2.2); BILIRUBIN,TOTAL 0.5 mg/dL (0.2-1.0); CALCIUM 8.5 mg/dL (8.5-10.3); CREATININE 2.5 mg/dL (0.4-1.0)
[2019-06-08 12:35] LABS: BILIRUBIN,URINE NEGATIVE (NEGATIVE); GLUCOSE, URINE (UA) NEGATIVE (NEGATIVE); KETONES,URINE (UA) NEGATIVE (NEGATIVE); LEUKOCYTE ESTERASE, URINE NEGATIVE (NEGATIVE); NITRITE,URINE NEGATIVE (NEGATIVE); OCCULT BLOOD,URINE NEGATIVE (NEGATIVE); PROTEIN,URINE NEGATIVE (NEGATIVE); UROBILINOGEN,URINE 0.2 (NORMAL) E.U./dL (NORMAL)
[2019-06-08 12:36] LABS: CLARITY,URINE CLEAR (CLEAR)
[2019-06-08 12:40] LABS: LITHIUM 0.44 mmol/L
== END 2019-06-08 23:59 | disposition home or self-care (01) ==
LOC: LAB.WCP 08:20
PROVIDERS: ATTEND Family Medicine
DX: T50.901A Poisoning by unspecified drugs, medicaments and biological substances, accidental (unintentional), initial encounter (principal); N18.5 Chronic kidney disease, stage 5
CPT/HCPCS: 36415; 80053; 80178; 81001; 81003; 85025; 87086

== ENCOUNTER 2019-06-13 23:23 | Outpatient (CLI) | payer MEDICARE | END 2019-06-13 23:59 | disposition EMS.NT | LOC: EMS 23:23 | PROVIDERS: ATTEND Surgery | DX: R06.02 Shortness of breath (principal) ==

== ENCOUNTER 2020-03-28 08:07 | Outpatient (CLI) | payer MEDICARE ==
[2020-03-28 12:32] LABS: BASOPHILS % (AUTO) 0.4 %; EOSINOPHILS # (AUTO) 0.1 10^3/uL (0.0-0.7); EOSINOPHILS % (AUTO) 2.1 %; HGB - HEMOGLOBIN 13.1 g/dL (12.0-16.0); LYMPHOCYTES # (AUTO) 1.8 10^3/uL (1.5-3.5); LYMPHOCYTES % (AUTO) 27.2 %; MEAN CORPUSCULAR HEMOGLOBIN 28.9 pg (27.0-31.0); MEAN CORPUSCULAR HGB CONC 31.6 g/dL (32.0-36.0); MEAN CORPUSCULAR VOLUME 91.4 fL (81.0-99.0); MEAN PLATELET VOLUME 10.1 fL (7.9-10.8); MONOCYTES # (AUTO) 0.5 10^3/uL (0.0-1.0); MONOCYTES % (AUTO) 6.9 %; NEUTROPHILS # (AUTO) 4.2 10^3/uL (1.5-6.6); NEUTROPHILS % (AUTO) 63.1 %; PLT - PLATELET COUNT 201 10^3/uL (130-450); RED BLOOD COUNT 4.53 10^6/uL (4.20-5.40); RED CELL DISTRIBUTION WIDTH 14.6 % (12.0-15.0); WHITE BLOOD COUNT 6.7 x10^3/uL (4.8-10.8)
[2020-03-28 12:38] LABS: HEMOGLOBIN A1c% 5.7 % (4.27-6.07)
[2020-03-28 13:28] LABS: FERRITIN 42.3 ng/mL (11.0-306.8)
[2020-03-28 13:30] LABS: % IRON SATURATION 17 % (20-50); ALBUMIN 3.5 g/dL (3.2-5.5); ALKALINE PHOSPHATASE 105 IU/L (42-121); ALT ALANINE AMINOTRANSFERASE 10 IU/L (10-60); AST ASPARTATE AMINOTRANSFERASE 11 IU/L (10-42); BILIRUBIN,TOTAL 0.5 mg/dL (0.2-1.0); BUN - BLOOD UREA NITROGEN 43 mg/dL (6-20); CALCIUM 9.5 mg/dL (8.5-10.3); CARBON DIOXIDE - CO2 20 mmol/L (21-32); CHLORIDE 109 mmol/L (101-111); CHOL/HDL RATIO 4.8 (<4.4); CHOLESTEROL 230 mg/dL; CREATININE 2.9 mg/dL (0.4-1.0); GLUCOSE 94 mg/dL (70-100); HDL CHOLESTEROL 48 mg/dL; IRON 55 ug/dL (28-170); LDL CHOLESTEROL,CALCULATED 158 mg/dL; LDL/HDL RATIO 3.3 (<4.4); TOTAL IRON BINDING CAPACITY 333 ug/dL (250-450); TRANSFERRIN 238 mg/dL (192-382); VLDL CHOLESTEROL 24 mg/dL
== END 2020-03-28 23:59 | disposition home or self-care (01) ==
LOC: LAB.WCP 08:07
PROVIDERS: ATTEND Family Medicine
DX: D50.9 Iron deficiency anemia, unspecified (principal); I25.10 Atherosclerotic heart disease of native coronary artery without angina pectoris; R73.01 Impaired fasting glucose; E03.9 Hypothyroidism, unspecified
CPT/HCPCS: 36415; 80053; 80061; 82607; 82728; 83036; 83540; 83721; 84443; 84466; 85025

== ENCOUNTER 2020-06-22 16:17 | Outpatient (CLI) | payer MEDICARE ==
[2020-06-22 19:08] LABS: ALBUMIN 3.5 g/dL (3.2-5.5); ALKALINE PHOSPHATASE 120 IU/L (42-121); ALT ALANINE AMINOTRANSFERASE 16 IU/L (10-60); AST ASPARTATE AMINOTRANSFERASE 12 IU/L (10-42); BILIRUBIN,TOTAL 0.4 mg/dL (0.2-1.0); BUN - BLOOD UREA NITROGEN 38 mg/dL (6-20); CALCIUM 9.6 mg/dL (8.5-10.3); CARBON DIOXIDE - CO2 21 mmol/L (21-32); CHLORIDE 108 mmol/L (101-111); CREATININE 3.1 mg/dL (0.4-1.0); GFR - MDRD 15 (>89); GLUCOSE 107 mg/dL (70-100); POTASSIUM 3.6 mmol/L (3.5-5.0); SODIUM 141 mmol/L (135-145)
[2020-06-22 19:21] LABS: BASOPHILS % (AUTO) 0.2 %; CARBAMAZEPINE (TEGRETOL) < 2.0 ug/mL; EOSINOPHILS # (AUTO) 0.1 10^3/uL (0.0-0.7); EOSINOPHILS % (AUTO) 1.1 %; HCT - HEMATOCRIT 40.9 % (37.0-47.0); HGB - HEMOGLOBIN 13.2 g/dL (12.0-16.0); LYMPHOCYTES # (AUTO) 1.8 10^3/uL (1.5-3.5); LYMPHOCYTES % (AUTO) 22.3 %; MEAN CORPUSCULAR HEMOGLOBIN 28.7 pg (27.0-31.0); MEAN CORPUSCULAR HGB CONC 32.3 g/dL (32.0-36.0); MEAN CORPUSCULAR VOLUME 88.9 fL (81.0-99.0); MEAN PLATELET VOLUME 10.6 fL (7.9-10.8); MONOCYTES # (AUTO) 0.5 10^3/uL (0.0-1.0); MONOCYTES % (AUTO) 6.3 %; NEUTROPHILS # (AUTO) 5.7 10^3/uL (1.5-6.6); NEUTROPHILS % (AUTO) 69.7 %; PLT - PLATELET COUNT 237 10^3/uL (130-450); RED CELL DISTRIBUTION WIDTH 14.7 % (12.0-15.0); WHITE BLOOD COUNT 8.2 x10^3/uL (4.8-10.8)
== END 2020-06-22 16:18 | disposition home or self-care (01) ==
LOC: LAB.N 16:17
PROVIDERS: ATTEND Psychiatry & Neurology Psychiatry
DX: F31.9 Bipolar disorder, unspecified (principal); Z79.899 Other long term (current) drug therapy
CPT/HCPCS: 36415; 80053; 80156; 85025

== ENCOUNTER 2020-07-11 07:26 | Outpatient (CLI) | payer MEDICARE | END 2020-07-11 07:27 | disposition critical access hospital (66) | LOC: EMS 07:26 | DX: F41.9 Anxiety disorder, unspecified (principal) | CPT/HCPCS: A0425; A0429 ==

== ENCOUNTER 2020-07-11 07:42 | Emergency (ER) | payer MEDICARE ==
[2020-07-11] MEDS ORDERED: ALPRAZolam 0.25 MG TABLET PO STA ×2 (07:52→14:03)
[2020-07-11 08:17] LABS: BASOPHILS % (AUTO) 0.2 %; EOSINOPHILS # (AUTO) 0.1 10^3/uL (0.0-0.7); EOSINOPHILS % (AUTO) 0.6 %; HCT - HEMATOCRIT 42.5 % (37.0-47.0); LYMPHOCYTES # (AUTO) 1.2 10^3/uL (1.5-3.5); LYMPHOCYTES % (AUTO) 15.1 %; MEAN CORPUSCULAR HEMOGLOBIN 29.4 pg (27.0-31.0); MEAN CORPUSCULAR HGB CONC 32.9 g/dL (32.0-36.0); MEAN CORPUSCULAR VOLUME 89.3 fL (81.0-99.0); MEAN PLATELET VOLUME 9.8 fL (7.9-10.8); MONOCYTES # (AUTO) 0.5 10^3/uL (0.0-1.0); MONOCYTES % (AUTO) 5.5 %; NEUTROPHILS # (AUTO) 6.4 10^3/uL (1.5-6.6); NEUTROPHILS % (AUTO) 78.4 %; PLT - PLATELET COUNT 239 10^3/uL (130-450); RED BLOOD COUNT 4.76 10^6/uL (4.20-5.40); RED CELL DISTRIBUTION WIDTH 15.1 % (12.0-15.0); WHITE BLOOD COUNT 8.2 x10^3/uL (4.8-10.8)
[2020-07-11 08:29] LABS: ALBUMIN 3.8 g/dL (3.2-5.5); ALBUMIN/GLOBULIN RATIO 1.1 (1.0-2.2); ALKALINE PHOSPHATASE 112 IU/L (42-121); ALT ALANINE AMINOTRANSFERASE 16 IU/L (10-60); AST ASPARTATE AMINOTRANSFERASE 12 IU/L (10-42); BILIRUBIN,TOTAL 0.9 mg/dL (0.2-1.0); BUN - BLOOD UREA NITROGEN 45 mg/dL (6-20); CALCIUM 9.3 mg/dL (8.5-10.3); CARBON DIOXIDE - CO2 18 mmol/L (21-32); CHLORIDE 107 mmol/L (101-111); ETOH - ETHANOL < 5.0 mg/dL; GFR - MDRD 15 (>89); GLUCOSE 129 mg/dL (70-100); LIPASE 34 U/L (22-51); POTASSIUM 3.6 mmol/L (3.5-5.0); SODIUM 138 mmol/L (135-145); TOTAL PROTEIN 7.2 g/dL (6.7-8.2)
[2020-07-11 08:30] LABS: INR 1.1 (0.8-1.2); PT - PROTHROMBIN TIME 11.8 secs (9.9-12.6)
[2020-07-11 09:05] LABS: LITHIUM < 0.05 mmol/L
--- NOTE | 2020-07-11 12:12 | ED Physician Documentation ---
History of Present Illness - Stated complaint Stated Complaint: MHE - Chief complaint Chief Complaint: MHE - History obtained from History obtained from: Patient, EMS - Additonal information Additional information: Patient sent to the emergency department via EMS for chief complaint of none of my medications are working for bipolar." Patient has a longstanding history of bipolar disorder and was stable on lithium for 50 years. However, over the last year, it was noted that her renal function was declining, and the decision was made that she should be taken off lithium and treated with something else. Unfortunately, she has been on a number of different medications for her bipolar disorder and none seem to be working satisfactorily. The patient states that she feels like she "cannot pull it altogether", and while she adamantly denies suicidality, she states she is so tired of this that sometimes she wishes she would pass away in her sleep. With specific questioning she adamantly denies suicidal thoughts or any sort of plan. Patient states that she has been feeling anxious with all of this going on. No other complaints at this time. The patient states she is here because her outpatient psychiatrist told her she should come and see if she can get placed [facility]. Patient is not sure what medication she is currently on. Review of Systems Ten Systems: 10 systems reviewed and negative Constitutional: reports: Reviewed and negative Eyes: reports: Reviewed and negative Ears: reports: Reviewed and negative Nose: reports: Reviewed and negative Throat: reports: Reviewed and negative Cardiac: reports: Reviewed and negative Respiratory: reports: Reviewed and negative GI: reports: Reviewed and negative : reports: Reviewed and negative Skin: reports: Reviewed and negative Musculoskeletal: reports: Reviewed and negative Neurologic: reports: Reviewed and negative Psychiatric: reports: Anxiety Endocrine: reports: Reviewed and negative Immunocompromised: reports: Reviewed and negative PD PAST MEDICAL HISTORY - Past Medical History Past Medical History: No Cardiovascular: Hypertension, Deep vein thrombosis Respiratory: Shortness of breath Endocrine/Autoimmune: HyPOthyroidism GI: GERD : None HEENT: Chronic vision loss Psych: Bipolar disorder Musculoskeletal: Osteoarthritis Derm: None - Past Surgical History General: Cholecystectomy, Colonoscopy 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: 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 HEENT: Cataracts Derm: Other - Present Medications Home Medications: Ambulatory Orders Medication Instructions Recorded Confirmed Ipratropium/Albuterol [Combivent 4 gm IH DAILY 01/22/13 07/07/17 Respimat] Levothyroxine Sodium [Synthroid] 112 mcg PO DAILY 01/22/13 07/07/17 [place] Carbonate [[place] 450 mg PO HS 01/22/13 07/07/17 Carbonate ER] Multivitamin [Multivitamins] 1 each PO DAILY 01/22/13 07/07/17 NIFEdipine [Procardia Xl] 90 mg PO DAILY 01/22/13 07/07/17 Omeprazole 20 mg PO BID 01/22/13 07/07/17 Aspirin [Aspir 81] 81 mg PO DAILY 09/12/14 07/07/17 Nitroglycerin [Nitrostat] 0.4 mg SL Q5MIN PRN 09/12/14 07/07/17 Isosorbide Dinitrate 30 mg PO BID 07/01/16 07/07/17 Triamterene/Hydrochlorothiazid 1 each PO DAILY 07/01/16 07/07/17 [Triamterene-Hctz 37.5-25 mg Cp] Lidocaine Viscous 2% [Xylocaine 5 ml PO Q4H PRN #1 bottle 07/07/17 Viscous 2%] Sucralfate 1 gm PO TID #30 tablet 07/07/17 Hydrocodone/Acetaminophen [[place] 1 each PO Q6H PRN #15 tablet 10/18/18 5-325 Tablet] Lidocaine Viscous 2% [Xylocaine 5 ml PO Q4H PRN #100 ml 10/18/18 Viscous 2%] Pantoprazole Sodium 40 mg PO DAILY #40 tablet. 10/18/18 Sucralfate [Carafate] 1 gm PO ACHS #40 tablet 10/18/18 Alprazolam [Xanax] 0.5 mg PO Q8HR PRN #20 tablet 07/11/20 - Allergies Allergies/Adverse Reactions: Allergies Allergy/AdvReac Type Severity Reaction Status Date / Time metoprolol Allergy Unknown Verified 10/22/18 11:43 diphenhydramine HCl * AdvReac Severe Anaphylaxis Verified 10/18/18 09:13 [From Benadryl] penicillin V AdvReac Severe Anaphylaxis Verified 10/18/18 09:13 atorvastatin calcium * AdvReac Anaphylaxis Verified 10/18/18 09:13 [From Lipitor] - Social History Does the pt smoke?: Yes Smoking Status: Current every day smoker Does the pt drink ETOH?: Yes Does the pt have substance abuse?: No - Immunizations Immunizations are current?: No Immunizations: TDAP >10years/unknown - POLST Patient has POLST: No PD ED PE NORMAL - Vitals Vital signs reviewed: Yes - General General: Alert and oriented X 3, No acute distress, Well developed/nourished - HEENT HEENT: Atraumatic, PERRL, EOMI, Moist mucous membranes - Neck Neck: Supple, no meningeal sign - Cardiac Cardiac: RRR, No murmur - Respiratory Respiratory: No respiratory distress, Clear bilaterally - Abdomen Abdomen: Soft, Non tender, Non distended - Derm Derm: Normal color, Warm and dry, No rash - Extremities Extremities: No deformity, No edema - Neuro Neuro: Alert and oriented X 3, 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, No motor deficit, No sensory deficit, Normal speech - Psych Psych: Normal mood, Normal affect Results - Vitals Vitals: Vital Signs - 24 hr 07/11/20 07/11/20 07:48 08:55 Temperature 37.4 C 37.1 C Heart Rate 80 73 Respiratory 18 18 Rate Blood Pressure 161/68 H 153/79 H O2 Saturation 99 97 Oxygen O2 Source Room air - Labs Labs: Laboratory Tests 07/11/20 07/11/20 07/11/20 08:09 08:09 08:09 WBC 8.2 RBC 4.76 Hgb 14.0 Hct 42.5 MCV 89.3 MCH 29.4 MCHC 32.9 RDW 15.1 H Plt Count 239 MPV 9.8 Neut # (Auto) 6.4 Lymph # (Auto) 1.2 L Victoria # (Auto) 0.5 Eos # (Auto) 0.1 Baso # (Auto) 0.0 Absolute Nucleated RBC 0.00 Nucleated RBC % 0.0 PT 11.8 INR 1.1 Sodium 138 Potassium 3.6 Chloride 107 Carbon Dioxide 18 L Anion Gap 13.0 BUN 45 H Creatinine 3.0 H Estimated GFR (MDRD) 15 L Glucose 129 H Calcium 9.3 Total Bilirubin 0.9 AST 12 ALT 16 Alkaline Phosphatase 112 Total Protein 7.2 Albumin 3.8 Globulin 3.4 Albumin/Globulin Ratio 1.1 Lipase 34 TSH Last Dose Date Last Dose Time Urine Opiates Screen Ur Oxycodone Screen Urine Methadone Screen Ur Propoxyphene Screen Ur Barbiturates Screen Ur Tricyclics Screen Ur Phencyclidine Scrn Ur Amphetamine Screen U Methamphetamines Scrn U Benzodiazepines Scrn [place] Urine Cocaine Screen U Cannabinoids Screen Ethyl Alcohol < 5.0 07/11/20 07/11/20 07/11/20 08:09 08:09 12:10 WBC RBC Hgb Hct MCV MCH MCHC RDW Plt Count MPV Neut # (Auto) Lymph # (Auto) Victoria # (Auto) Eos # (Auto) Baso # (Auto) Absolute Nucleated RBC Nucleated RBC % PT INR Sodium Potassium Chloride Carbon Dioxide Anion Gap BUN Creatinine Estimated GFR (MDRD) Glucose Calcium Total Bilirubin AST ALT Alkaline Phosphatase Total Protein Albumin Globulin Albumin/Globulin Ratio Lipase TSH 0.33 L Last Dose Date UNK Last Dose Time UNK Urine Opiates Screen NEGATIVE Ur Oxycodone Screen NEGATIVE Urine Methadone Screen NEGATIVE Ur Propoxyphene Screen NEGATIVE Ur Barbiturates Screen NEGATIVE Ur Tricyclics Screen NEGATIVE Ur Phencyclidine Scrn NEGATIVE Ur Amphetamine Screen NEGATIVE U Methamphetamines Scrn NEGATIVE U Benzodiazepines Scrn NEGATIVE Kelay[place] < 0.05 Urine Cocaine Screen NEGATIVE U Cannabinoids Screen NEGATIVE Ethyl Alcohol PD MEDICAL DECISION MAKING - ED course Complexity details: reviewed results, re-evaluated patient, considered differential, d/w patient ED course: The patient was evaluated after medical clearance by social service technician, who did call multiple facilities to Try to find an inpatient option for the patient. However, due to lack of criteria, no facility would accept the patient. Specifically, she was denied because of lack of suicidal or homicidal ideation, as well as lack of grave disability. The patient was given Xanax in the emergency department and reported feeling marked improvement. She stated she did not want to go to a facility with other psychiatric patients and would rather go home. millinery worker did attempt to get a hold of the patient's psychiatrist to relay the details and to set up a follow-up plan; however, the psychiatrist was not available at the time of call and did not return the call during the patient's stay here. Patient's daughter was made aware of the situation including that multiple facilities have been tried, the patient does not meet inpatient criteria. I did prescribe the patient Xanax for rescue at home. I do feel she is stable for discharge at this time as she is not a danger to herself or others. We have discussed home management of the symptoms, the need for follow-up, and the usual indications for return. Departure - Departure Disposition: 01 Home, Self Care Clinical Impression: Anxiety Bipolar disorder Qualifiers: Active/Remission status: remission status unspecified Qualified Code(s): F31.9 - Bipolar disorder, unspecified Condition: Stable Instructions: ED Manic Depression, ED Panic Attack Prescriptions: Alprazolam [Xanax] 0.5 mg PO Q8HR PRN #20 tablet PRN Reason: Anxiety Comments: Unfortunately, you do not meet criteria with any facilities for inpatient treatment today. We have attempted to reach your psychiatrist, but he has not been available to discuss your case. For now, we will have you continue your current medications and take the Xanax as needed. Please call your psychiatrist as soon as possible to arrange follow-up appointment to discuss further management options for you. If you begin to feel suicidal or otherwise a danger to yourself or others, please return to the emergency department immediately.
[2020-07-11 12:20] LABS: MUDS CUTOFF CONCENTRATIONS CUTOFF CONC BELOW:
[2020-07-11 12:51] LABS: AMPHETAMINE SCREEN,URINE NEGATIVE (NEGATIVE); BARBITURATE SCREEN,UR NEGATIVE (NEGATIVE); BENZODIAZEPINES SCREEN, URINE NEGATIVE (NEGATIVE); COCAINE SCREEN URINE NEGATIVE (NEGATIVE); METHADONE SCREEN, URINE NEGATIVE (NEGATIVE); METHAMPHETAMINES SCREEN, URINE NEGATIVE (NEGATIVE); OPIATE SCREEN, URINE NEGATIVE (NEGATIVE); OXYCODONE SCREEN, URINE NEGATIVE (NEGATIVE); PROPOXYPHENE SCREEN, URINE NEGATIVE (NEGATIVE); THC CANNABINOID SCREEN, URINE NEGATIVE (NEGATIVE); TRICYCLIC ANTIDEPRESSANT,URINE NEGATIVE (NEGATIVE)
[2020-07-11] MEDS ORDERED: NICOTINE 21 MG PATCH TOP STA (14:03)
[2020-07-11 16:46] VITALS: BP 137/72
== END 2020-07-11 17:51 | disposition home or self-care (01) ==
LOC: EDUNIT# → ED 07:42
DX: F41.9 Anxiety disorder, unspecified (principal); F31.9 Bipolar disorder, unspecified; I10 Essential (primary) hypertension; Z79.82 Long term (current) use of aspirin; F17.200 Nicotine dependence, unspecified, uncomplicated
CPT/HCPCS: 36415; 80053; 80178; 80306; 83690; 84443; 85025; 85610; 99283; A9270; G0480; 0202U; 80320

== ENCOUNTER 2020-07-15 09:59 | Emergency (ER) | payer MEDICARE ==
--- OUTSIDE RECORDS SUMMARY | 2020-07-15 10:01 | EXTERNAL MEDICAL SUMMARY RPT | Continuity of Care Document ---
:1945 Demographics Phone Unavailable Preferred Language Unknown Marital Status Unknown Holiness Affiliation Unknown Race Unknown Ethnic Group Unknown Author Organization [facility] Address [address] [id number] Phone Allergies Encounters Medications Problems Results
--- OUTSIDE RECORDS SUMMARY | 2020-07-15 10:05 | EXTERNAL MEDICAL SUMMARY RPT | Continuity of Care Document ---
:1945 Demographics Phone Unavailable Preferred Language Unknown Marital Status Unknown Episcopalian Affiliation Unknown Race Unknown Ethnic Group Unknown Author Organization [facility] Address [address] [id number] Phone Allergies Encounters Medications Problems Results
[2020-07-15] MEDS ORDERED: diazePAM INJ 5 MG/ML SYRINGE IM STA ×2 (11:09→14:18)
[2020-07-15 11:34] LABS: BASOPHILS % (AUTO) 0.4 %; EOSINOPHILS % (AUTO) 0.4 %; LYMPHOCYTES # (AUTO) 1.3 10^3/uL (1.5-3.5); LYMPHOCYTES % (AUTO) 13.4 %; MEAN CORPUSCULAR HEMOGLOBIN 29.8 pg (27.0-31.0); MEAN CORPUSCULAR HGB CONC 33.3 g/dL (32.0-36.0); MEAN CORPUSCULAR VOLUME 89.4 fL (81.0-99.0); MONOCYTES # (AUTO) 0.6 10^3/uL (0.0-1.0); MONOCYTES % (AUTO) 5.9 %; NEUTROPHILS # (AUTO) 7.4 10^3/uL (1.5-6.6); NEUTROPHILS % (AUTO) 79.5 %; PLT - PLATELET COUNT 245 10^3/uL (130-450); WHITE BLOOD COUNT 9.4 x10^3/uL (4.8-10.8)
[2020-07-15 11:51] LABS: ACETAMINOPHEN < 10 ug/mL (10-30); ALBUMIN 3.8 g/dL (3.2-5.5); ALBUMIN/GLOBULIN RATIO 1.2 (1.0-2.2); ALKALINE PHOSPHATASE 108 IU/L (42-121); ALT ALANINE AMINOTRANSFERASE 14 IU/L (10-60); AST ASPARTATE AMINOTRANSFERASE 13 IU/L (10-42); BILIRUBIN,TOTAL 0.6 mg/dL (0.2-1.0); BUN - BLOOD UREA NITROGEN 43 mg/dL (6-20); CALCIUM 9.2 mg/dL (8.5-10.3); CARBON DIOXIDE - CO2 19 mmol/L (21-32); CHLORIDE 107 mmol/L (101-111); CREATININE 2.7 mg/dL (0.4-1.0); ETOH - ETHANOL < 5.0 mg/dL; GFR - MDRD 17 (>89); GLUCOSE 127 mg/dL (70-100); LIPASE 38 U/L (22-51); MAGNESIUM 2.7 mg/dL (1.7-2.8); POTASSIUM 3.7 mmol/L (3.5-5.0); SALICYLATE < 6.0 mg/dL; SODIUM 138 mmol/L (135-145); TOTAL PROTEIN 6.9 g/dL (6.7-8.2)
[2020-07-15 12:39] LABS: MUDS CUTOFF CONCENTRATIONS CUTOFF CONC BELOW:
[2020-07-15 12:43] LABS: BILIRUBIN,URINE NEGATIVE (NEGATIVE); GLUCOSE, URINE (UA) NEGATIVE (NEGATIVE); KETONES,URINE (UA) NEGATIVE (NEGATIVE); LEUKOCYTE ESTERASE, URINE NEGATIVE (NEGATIVE); NITRITE,URINE NEGATIVE (NEGATIVE); OCCULT BLOOD,URINE NEGATIVE (NEGATIVE); PROTEIN,URINE NEGATIVE (NEGATIVE); UROBILINOGEN,URINE 0.2 (NORMAL) E.U./dL (NORMAL)
[2020-07-15 12:45] LABS: CLARITY,URINE CLEAR (CLEAR)
[2020-07-15 12:57] LABS: AMPHETAMINE SCREEN,URINE NEGATIVE (NEGATIVE); COCAINE SCREEN URINE NEGATIVE (NEGATIVE); METHAMPHETAMINES SCREEN, URINE NEGATIVE (NEGATIVE); OPIATE SCREEN, URINE NEGATIVE (NEGATIVE); THC CANNABINOID SCREEN, URINE NEGATIVE (NEGATIVE)
[2020-07-15 12:58] LABS: BARBITURATE SCREEN,UR NEGATIVE (NEGATIVE); BENZODIAZEPINES SCREEN, URINE POSITIVE (NEGATIVE); METHADONE SCREEN, URINE NEGATIVE (NEGATIVE); OXYCODONE SCREEN, URINE NEGATIVE (NEGATIVE); PROPOXYPHENE SCREEN, URINE NEGATIVE (NEGATIVE); TRICYCLIC ANTIDEPRESSANT,URINE NEGATIVE (NEGATIVE)
[2020-07-15 13:32] LABS: B. PARAPERTUSSIS- RESP PCR PAN NOT DETECTED; CORONAVIRUS 229E-RESP PCR NOT DETECTED; CORONAVIRUS HKU1-RESP PCR NOT DETECTED; CORONAVIRUS NL63-RESP PCR NOT DETECTED; CORONAVIRUS OC43-RESP PCR NOT DETECTED; HUMAN METAPNEUMOVIRUS NOT DETECTED; INFLUENZA A- RESP PCR PANEL NOT DETECTED; INFLUENZA B - RESP PCR PANEL NOT DETECTED; PARAINFLUENZA VIRUS 1 NOT DETECTED; PARAINFLUENZA VIRUS 2 NOT DETECTED; PARAINFLUENZA VIRUS 3 NOT DETECTED; PARAINFLUENZA VIRUS 4 NOT DETECTED; RHINOVIRUS/ENTEROVIRUS NOT DETECTED; RSV- RESP PCR PANEL NOT DETECTED; SARS-CoV-2 -RESP PCR PANEL NOT DETECTED
[2020-07-15 13:33] LABS: B. PERTUSSIS- RESP PCR PANEL NOT DETECTED; C. PNEUMONIAE- RESP PCR PANEL NOT DETECTED; M. PNEUMONIAE- RESP PCR PANEL NOT DETECTED
[2020-07-15] MEDS ORDERED: NICOTINE 14 MG PATCH TOP STA (14:18)
--- NOTE | 2020-07-15 16:53 | ED Physician Documentation ---
PD HPI MHE - Stated complaint Stated Complaint: MHE - Chief complaint Chief Complaint: MHE - History obtained from History obtained from: Patient, Family - History of Present Illness Primary symptom: Manic (Patient has a history of bipolar disorder that had been many many years. She had developed renal insufficiency and had to come off of it. Multiple medications have been tried in the last year without improvement generally in her symptoms. Feeling more anxious, insomnia, manic the last couple weeks.), Anxiety, Other (insomnia, feeling manic.). No: Suicidal ideation, Suicide attempt, Out of meds Timing - onset: How many weeks ago (worse the past couple weeks, and more the past few days. Seen in ER 4 days ago for same and SW unable to find accepting facility. Patient more anxious now and feeling suicidal ideation without action taken.) Contributing factors: No: Substance abuse - ETOH, Substance abuse - drugs Similar symptoms before: Diagnosis (bipolar disorder with manic) Recently seen: Clinic (Has been seen by psychiatrist with several different medications attempted over the past several months to a year), Emergency Dept (4 days ago for same, with worse symptoms now.) Review of Systems Constitutional: denies: Fever, Chills Nose: denies: Rhinorrhea / runny nose, Congestion Throat: denies: Sore throat Respiratory: denies: Cough GI: denies: Abdominal Pain, Nausea, Vomiting, Diarrhea Musculoskeletal: denies: Neck pain, Back pain Neurologic: denies: Headache Psychiatric: reports: Suicidal, Anxiety, Insomnia, Other (anxious and mind racing). denies: Homicidal, Delusions Immunocompromised: denies: Immunocompromised PD PAST MEDICAL HISTORY - Past Medical History Past Medical History: Yes Cardiovascular: Hypertension, Deep vein thrombosis Respiratory: Shortness of breath Endocrine/Autoimmune: HyPOthyroidism GI: GERD : Renal insuffiency (chronic renal failure, with creatinine stable at 3. Has seen Nephrology and is pre-dialysis for now. 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 HEENT: Cataracts Derm: Other - Present Medications Home Medications: Ambulatory Orders Medication Instructions Recorded Confirmed Ipratropium/Albuterol [Combivent 4 gm IH DAILY 01/22/13 07/07/17 Respimat] Levothyroxine Sodium [Synthroid] 112 mcg PO DAILY 01/22/13 07/07/17 [place] Carbonate [[place] 450 mg PO HS 01/22/13 07/07/17 Carbonate ER] Multivitamin [Multivitamins] 1 each PO DAILY 01/22/13 07/07/17 NIFEdipine [Procardia Xl] 90 mg PO DAILY 01/22/13 07/07/17 Omeprazole 20 mg PO BID 01/22/13 07/07/17 Aspirin [Aspir 81] 81 mg PO DAILY 09/12/14 07/07/17 Nitroglycerin [Nitrostat] 0.4 mg SL Q5MIN PRN 09/12/14 07/07/17 Isosorbide Dinitrate 30 mg PO BID 07/01/16 07/07/17 Triamterene/Hydrochlorothiazid 1 each PO DAILY 07/01/16 07/07/17 [Triamterene-Hctz 37.5-25 mg Cp] Lidocaine Viscous 2% [Xylocaine 5 ml PO Q4H PRN #1 bottle 07/07/17 Viscous 2%] Sucralfate 1 gm PO TID #30 tablet 07/07/17 Hydrocodone/Acetaminophen [[place] 1 each PO Q6H PRN #15 tablet 10/18/18 5-325 Tablet] Lidocaine Viscous 2% [Xylocaine 5 ml PO Q4H PRN #100 ml 10/18/18 Viscous 2%] Pantoprazole Sodium 40 mg PO DAILY #40 tablet. 10/18/18 Sucralfate [Carafate] 1 gm PO ACHS #40 tablet 10/18/18 ALPRAZolam [Xanax] 0.5 mg PO Q8HR PRN #20 tablet 07/11/20 - Allergies Allergies/Adverse Reactions: Allergies Allergy/AdvReac Type Severity Reaction Status Date / Time metoprolol Allergy Unknown Verified 07/15/20 10:23 diphenhydramine HCl * AdvReac Severe Anaphylaxis Verified 07/15/20 10:23 [From Benadryl] penicillin V AdvReac Severe Anaphylaxis Verified 07/15/20 10:23 atorvastatin calcium * AdvReac Anaphylaxis Verified 07/15/20 10:23 [From Lipitor] - Social History Does the pt smoke?: Yes Smoking Status: Current every day smoker Does the pt drink ETOH?: Yes Does the pt have substance abuse?: No - Immunizations Immunizations are current?: No Immunizations: TDAP >10years/unknown - POLST Patient has POLST: No PD ED PE NORMAL - Vitals Vital signs reviewed: Yes - General General: Alert and oriented X 3, Well developed/nourished - Neck Neck: Supple, no meningeal sign, No adenopathy - Cardiac Cardiac: RRR, No murmur - Respiratory Respiratory: Clear bilaterally - Abdomen Abdomen: Soft, Non tender, Non distended - Back Back: No CVA TTP - Derm Derm: Normal color, Warm and dry - Extremities Extremities: No edema, No calf tenderness / cord - Neuro Neuro: Alert and oriented X 3, No motor deficit, Normal speech Eye Opening: Spontaneous Motor: Obeys Commands Verbal: Oriented GCS Score: 15 - Psych Psych: No: Normal mood (anxious, pressured speech and expresses feeling depressed about no meds working well. ) Results - Vitals Vitals: Vital Signs - 24 hr 07/15/20 07/15/20 10:16 19:11 Temperature 36.6 C 36.6 C Heart Rate 80 68 Respiratory 18 17 Rate Blood Pressure 144/101 H 143/63 H O2 Saturation 97 98 Oxygen O2 Source Room air - Labs Labs: Laboratory Tests 07/15/20 07/15/20 07/15/20 11:22 11:22 11:22 WBC 9.4 RBC 4.70 Hgb 14.0 Hct 42.0 MCV 89.4 MCH 29.8 MCHC 33.3 RDW 15.0 Plt Count 245 MPV 10.0 Neut # (Auto) 7.4 H Lymph # (Auto) 1.3 L [place] # (Auto) 0.6 Eos # (Auto) 0.0 Baso # (Auto) 0.0 Absolute Nucleated RBC 0.00 Nucleated RBC % 0.0 Sodium 138 Potassium 3.7 Chloride 107 Carbon Dioxide 19 L Anion Gap 12.0 BUN 43 H Creatinine 2.7 H Estimated GFR (MDRD) 17 L Glucose 127 H Calcium 9.2 Magnesium 2.7 Total Bilirubin 0.6 AST 13 ALT 14 Alkaline Phosphatase 108 Total Protein 6.9 Albumin 3.8 Globulin 3.1 Albumin/Globulin Ratio 1.2 Lipase 38 TSH 0.29 L Urine Color Urine Clarity Urine pH Ur Specific [place] Urine Protein Urine Glucose (UA) Urine Ketones Urine Occult Blood Urine Nitrite Urine Bilirubin Urine Urobilinogen Ur Leukocyte Esterase Ur Microscopic Review Urine Culture Comments Nasal Adenovirus (PCR) Nasal B. parapertussis DNA (PCR) Nasal Coronavir 229E PCR Nasal Coronavir HKU1 PCR Nasal Coronavir NL63 PCR Nasal Coronavir OC43 PCR Nasal Enterovir/Rhinovir PCR Nasal Influenza B PCR Nasal Influenza A PCR Nasal Parainfluen 1 PCR Nasal Parainfluen 2 PCR Nasal Parainfluen 3 PCR Nasal Parainfluen 4 PCR Nasal RSV (PCR) Nasal B.pertussis DNA PCR Nasal C.pneumoniae (PCR) Hayder Human Metapneumo PCR Nasal M.pneumoniae (PCR) Nasal SARS-CoV-2 (PCR) Salicylates < 6.0 Urine Opiates Screen Ur Oxycodone Screen Urine Methadone Screen Ur Propoxyphene Screen Acetaminophen < 10 L Ur Barbiturates Screen Ur Tricyclics Screen Ur Phencyclidine Scrn Ur Amphetamine Screen U Methamphetamines Scrn U Benzodiazepines Scrn Urine Cocaine Screen U Cannabinoids Screen Ethyl Alcohol < 5.0 07/15/20 07/15/20 07/15/20 12:32 12:32 12:32 WBC RBC Hgb Hct MCV MCH MCHC RDW Plt Count MPV Neut # (Auto) Lymph # (Auto) [place] # (Auto) Eos # (Auto) Baso # (Auto) Absolute Nucleated RBC Nucleated RBC % Sodium Potassium Chloride Carbon Dioxide Anion Gap BUN Creatinine Estimated GFR (MDRD) Glucose Calcium Magnesium Total Bilirubin AST ALT Alkaline Phosphatase Total Protein Albumin Globulin Albumin/Globulin Ratio Lipase TSH Urine Color YELLOW Urine Clarity CLEAR Urine pH 6.0 Ur Specific [place] <=1.005 Urine Protein NEGATIVE Urine Glucose (UA) NEGATIVE Urine Ketones NEGATIVE Urine Occult Blood NEGATIVE Urine Nitrite NEGATIVE Urine Bilirubin NEGATIVE Urine Urobilinogen 0.2 (NORMAL) Ur Leukocyte Esterase NEGATIVE Ur Microscopic Review NOT INDICATED Urine Culture Comments NOT INDICATED Nasal Adenovirus (PCR) NOT DETECTED Nasal B. parapertussis DNA (PCR) NOT DETECTED Nasal Coronavir 229E PCR NOT DETECTED Nasal Coronavir HKU1 PCR NOT DETECTED Nasal Coronavir NL63 PCR NOT DETECTED Nasal Coronavir OC43 PCR NOT DETECTED Nasal Enterovir/Rhinovir PCR NOT DETECTED Nasal Influenza B PCR NOT DETECTED Nasal Influenza A PCR NOT DETECTED Nasal Parainfluen 1 PCR NOT DETECTED Nasal Parainfluen 2 PCR NOT DETECTED Nasal Parainfluen 3 PCR NOT DETECTED Nasal Parainfluen 4 PCR NOT DETECTED Nasal RSV (PCR) NOT DETECTED Nasal B.pertussis DNA PCR NOT DETECTED Nasal C.pneumoniae (PCR) NOT DETECTED Hayder Human Metapneumo PCR NOT DETECTED Nasal M.pneumoniae (PCR) NOT DETECTED Nasal SARS-CoV-2 (PCR) NOT DETECTED Salicylates Urine Opiates Screen NEGATIVE Ur Oxycodone Screen NEGATIVE Urine Methadone Screen NEGATIVE Ur Propoxyphene Screen NEGATIVE Acetaminophen Ur Barbiturates Screen NEGATIVE Ur Tricyclics Screen NEGATIVE Ur Phencyclidine Scrn NEGATIVE Ur Amphetamine Screen NEGATIVE U Methamphetamines Scrn NEGATIVE U Benzodiazepines Scrn POSITIVE H Urine Cocaine Screen NEGATIVE U Cannabinoids Screen NEGATIVE Ethyl Alcohol PD MEDICAL DECISION MAKING - ED course Complexity details: considered differential (Manic/anxiety and feeling needs hospitalization as outpt meds not working well. Feeling suicidal the past 2-3 days now as well. Will have SW discuss with her and attempt psych placement. ), d/w patient Departure - Departure Clinical Impression: Suicidal ideation, Anxiety Bipolar disorder Qualifiers: Active/Remission status: currently active Current bipolar episode type: hypomanic Qualified Code(s): F31.0 - Bipolar disorder, current episode hypomanic Chronic renal failure Qualifiers: Chronic kidney disease stage: stage 4 (severe) Qualified Code(s): N18.4 - Chronic kidney disease, stage 4 (severe) Condition: Stable Record reviewed to determine appropriate education?: Yes
[2020-07-15] MEDS ORDERED: ALPRAZolam 0.25 MG TABLET PO STA (20:04)
--- NOTE | 2020-07-15 21:29 | ED Physician Documentation ---
ED Addendum - Addendum Addendum: 07/15/20 21:17 ED EKG - 1826 70 Sinus rhythm, q waves III, non-specific ST changes. normal NM interval.
[2020-07-16] MEDS ORDERED: diazePAM 5 MG TABLET PO STA (06:01)
--- NOTE | 2020-07-16 07:50 | ED Physician Documentation ---
ED Addendum - Addendum Addendum: Patient remains in the ER overnight. She is asking for some medication for anxiety this morning. Given diazepam p.o. We will start alprazolam twice daily. Social work will continue working with the patient for placement this morning. 07/16/20 07:49
[2020-07-16] MEDS ORDERED: ALPRAZolam 0.25 MG TABLET PO SCH (09:00)
[2020-07-16] MEDS ORDERED: NICOTINE 14 MG PATCH TOP STA (12:57)
[2020-07-16] MEDS ORDERED: ALPRAZolam 0.25 MG TABLET PO STA (12:57)
[2020-07-16 16:57] VITALS: BP 124/65
--- NOTE | 2020-07-16 17:18 | ED Physician Documentation ---
ED Addendum - Addendum Addendum: 07/16/20 17:19 Patient is accepted to [facility] in [facility]. Her daughter is comfortable driving her there. Patient will be discharged with her daughter. This document was made in part using voice recognition software. While efforts are made to proofread this document, sound alike and grammatical errors may occur. Departure - Departure Disposition: 01 Home, Self Care Clinical Impression: Suicidal ideation, Anxiety Bipolar disorder Qualifiers: Active/Remission status: currently active Current bipolar episode type: hypomanic Qualified Code(s): F31.0 - Bipolar disorder, current episode hypomanic Chronic renal failure Qualifiers: Chronic kidney disease stage: stage 4 (severe) Qualified Code(s): N18.4 - Chronic kidney disease, stage 4 (severe) Condition: Stable Instructions: Bipolar Disorder Follow-Up: Apollo Rhodes DO [Primary Care Provider] - Drew Pichardo MD [Credentialed Staff Provider] - Comments: You are going to [facility] [address] [facility] [place] [address] Return if you worsen
[2020-07-16] MEDS ORDERED: LORazepam 1 MG TABLET PO STA (17:38)
== END 2020-07-16 18:22 | disposition home or self-care (01) ==
LOC: ED 09:59
DX: F31.0 Bipolar disorder, current episode hypomanic (principal); R45.851 Suicidal ideations; F41.9 Anxiety disorder, unspecified; I12.9 Hypertensive chronic kidney disease with stage 1 through stage 4 chronic kidney disease, or unspecified chronic kidney disease; N18.4 Chronic kidney disease, stage 4 (severe); Z20.822 Contact with and (suspected) exposure to COVID-19; F17.200 Nicotine dependence, unspecified, uncomplicated; Z79.82 Long term (current) use of aspirin
CPT/HCPCS: 36415; 80053; 80306; 80307; 81003; 83690; 83735; 84443; 85025; 87631; 93005; 96372; 99283; 99284; A9270; G0480; J8499; 0202U; 80320; 80329; 81001; 87086

== ENCOUNTER 2021-08-30 08:27 | Outpatient (CLI) | payer MEDICARE ==
[2021-08-30 11:52] LABS: BASOPHILS % (AUTO) 0.3 %; EOSINOPHILS # (AUTO) 0.2 10^3/uL (0.0-0.7); EOSINOPHILS % (AUTO) 2.5 %; HCT - HEMATOCRIT 36.9 % (37.0-47.0); HGB - HEMOGLOBIN 11.9 g/dL (12.0-16.0); LYMPHOCYTES # (AUTO) 1.3 10^3/uL (1.5-3.5); LYMPHOCYTES % (AUTO) 17.5 %; MEAN CORPUSCULAR HEMOGLOBIN 28.6 pg (27.0-31.0); MEAN CORPUSCULAR HGB CONC 32.2 g/dL (32.0-36.0); MEAN CORPUSCULAR VOLUME 88.7 fL (81.0-99.0); MEAN PLATELET VOLUME 10.8 fL (7.9-10.8); MONOCYTES # (AUTO) 0.5 10^3/uL (0.0-1.0); MONOCYTES % (AUTO) 6.6 %; NEUTROPHILS # (AUTO) 5.3 10^3/uL (1.5-6.6); NEUTROPHILS % (AUTO) 72.8 %; PLT - PLATELET COUNT 208 10^3/uL (130-450); RED BLOOD COUNT 4.16 10^6/uL (4.20-5.40); RED CELL DISTRIBUTION WIDTH 13.6 % (12.0-15.0); WHITE BLOOD COUNT 7.3 x10^3/uL (4.8-10.8)
[2021-08-30 12:15] LABS: ALBUMIN 3.9 g/dL (3.2-5.5); ALBUMIN/GLOBULIN RATIO 1.3 (1.0-2.2); ALKALINE PHOSPHATASE 74 IU/L (42-121); ALT ALANINE AMINOTRANSFERASE 14 IU/L (10-60); AST ASPARTATE AMINOTRANSFERASE 15 IU/L (10-42); BILIRUBIN,TOTAL 0.7 mg/dL (0.2-1.0); BUN - BLOOD UREA NITROGEN 70 mg/dL (6-20); CALCIUM 9.9 mg/dL (8.5-10.3); CARBON DIOXIDE - CO2 26 mmol/L (21-32); CHLORIDE 107 mmol/L (101-111); CHOL/HDL RATIO 4.1 (<4.4); CHOLESTEROL 203 mg/dL; CREATININE 3.4 mg/dL (0.4-1.0); GFR - MDRD 13 (>89); GLUCOSE 102 mg/dL (70-100); HDL CHOLESTEROL 49 mg/dL; LDL CHOLESTEROL,CALCULATED 131 mg/dL; LDL/HDL RATIO 2.7 (<4.4); POTASSIUM 4.4 mmol/L (3.5-5.0); SODIUM 142 mmol/L (135-145); TRIGLYCERIDES 113 mg/dL; VLDL CHOLESTEROL 23 mg/dL
[2021-08-30 12:21] LABS: THYROID STIMULATING HORMONE 0.11 uIU/mL (0.34-5.60)
[2021-08-30 12:57] LABS: FREE T4 (FREE THYROXINE) 2.14 ng/dL (0.58-1.64)
== END 2021-08-30 08:28 | disposition home or self-care (01) ==
LOC: LAB.N 08:27
PROVIDERS: ATTEND Physician Assistant
DX: N18.4 Chronic kidney disease, stage 4 (severe) (principal); E78.5 Hyperlipidemia, unspecified; E03.9 Hypothyroidism, unspecified; I25.10 Atherosclerotic heart disease of native coronary artery without angina pectoris
CPT/HCPCS: 36415; 80053; 80061; 83721; 84439; 84443; 85025

== ENCOUNTER 2021-09-13 09:37 | Outpatient (CLI) | payer MEDICARE ==
[2021-09-13 13:00] LABS: CREATININE,URINE 71.3 mg/dL; PROTEIN/CREATININE RATIO,URINE 0.2 (<=0.2)
== END 2021-09-13 09:38 | disposition home or self-care (01) ==
LOC: LAB.N 09:37
PROVIDERS: ATTEND Internal Medicine Nephrology
DX: R80.9 Proteinuria, unspecified (principal)
CPT/HCPCS: 82570; 84156

== ENCOUNTER 2022-08-23 08:46 | Outpatient (CLI) | payer MEDICARE ==
[2022-08-23 12:59] LABS: BASOPHILS % (AUTO) 0.5 %; EOSINOPHILS # (AUTO) 0.2 10^3/uL (0.0-0.7); HCT - HEMATOCRIT 37.4 % (37.0-47.0); HGB - HEMOGLOBIN 11.6 g/dL (12.0-16.0); LYMPHOCYTES # (AUTO) 1.3 10^3/uL (1.5-3.5); LYMPHOCYTES % (AUTO) 20.4 %; MEAN CORPUSCULAR HEMOGLOBIN 27.8 pg (27.0-31.0); MEAN CORPUSCULAR VOLUME 89.7 fL (81.0-99.0); MEAN PLATELET VOLUME 10.4 fL (7.9-10.8); MONOCYTES # (AUTO) 0.5 10^3/uL (0.0-1.0); MONOCYTES % (AUTO) 7.4 %; NEUTROPHILS # (AUTO) 4.3 10^3/uL (1.5-6.6); NEUTROPHILS % (AUTO) 68.2 %; PLT - PLATELET COUNT 215 10^3/uL (130-450); RED BLOOD COUNT 4.17 10^6/uL (4.20-5.40); RED CELL DISTRIBUTION WIDTH 13.9 % (12.0-15.0); WHITE BLOOD COUNT 6.4 x10^3/uL (4.8-10.8)
[2022-08-23 13:36] LABS: ALBUMIN 3.6 g/dL (3.2-5.5); ALBUMIN/GLOBULIN RATIO 0.9 (1.0-2.2); ALKALINE PHOSPHATASE 118 IU/L (42-121); ALT ALANINE AMINOTRANSFERASE 15 IU/L (10-60); AST ASPARTATE AMINOTRANSFERASE 17 IU/L (10-42); BILIRUBIN,TOTAL 0.6 mg/dL (0.2-1.0); BUN - BLOOD UREA NITROGEN 54 mg/dL (6-20); CALCIUM 9.3 mg/dL (8.5-10.3); CARBON DIOXIDE - CO2 23 mmol/L (21-32); CHLORIDE 110 mmol/L (101-111); CHOL/HDL RATIO 3.5 (<4.4); CHOLESTEROL 198 mg/dL; CREATININE 3.9 mg/dL (0.4-1.0); GFR - MDRD 11 (>89); GLUCOSE 99 mg/dL (70-100); HDL CHOLESTEROL 56 mg/dL; LDL CHOLESTEROL,CALCULATED 123 mg/dL; LDL/HDL RATIO 2.2 (<4.4); POTASSIUM 4.3 mmol/L (3.5-5.0); SODIUM 142 mmol/L (135-145); TOTAL PROTEIN 7.4 g/dL (6.7-8.2); TRIGLYCERIDES 93 mg/dL; VLDL CHOLESTEROL 19 mg/dL
[2022-08-23 13:47] LABS: THYROID STIMULATING HORMONE 0.19 uIU/mL (0.34-5.60)
[2022-08-23 14:32] LABS: FREE T4 (FREE THYROXINE) 1.62 ng/dL (0.58-1.64)
== END 2022-08-23 08:47 | disposition home or self-care (01) ==
LOC: LAB.N 08:46
PROVIDERS: ATTEND Physician Assistant
DX: I12.9 Hypertensive chronic kidney disease with stage 1 through stage 4 chronic kidney disease, or unspecified chronic kidney disease (principal); Z79.899 Other long term (current) drug therapy
CPT/HCPCS: 36415; 80053; 80061; 83721; 84439; 84443; 85025